=== PATIENT | female | born 1995 | race Caucasian/White ===

== ENCOUNTER 2017-04-12 16:28 | Emergency (ER) | payer OTHER ==
[2017-04-12 17:54] LABS: BILIRUBIN,URINE NEGATIVE (NEGATIVE); GLUCOSE, URINE (UA) NEGATIVE (NEGATIVE); KETONES,URINE (UA) >=80 mg/dL (NEGATIVE); LEUKOCYTE ESTERASE, URINE MODERATE (NEGATIVE); NITRITE,URINE NEGATIVE (NEGATIVE); OCCULT BLOOD,URINE NEGATIVE (NEGATIVE); PROTEIN,URINE NEGATIVE (NEGATIVE); UROBILINOGEN,URINE 0.2 (NORMAL) E.U./dL (NORMAL)
[2017-04-12 18:02] LABS: CLARITY,URINE CLEAR (CLEAR); HCG UR QUAL POSITIVE
[2017-04-12 18:03] LABS: BACTERIA,URINE Moderate /HPF (None Seen); RBC,URINE 0-5 /HPF (0-5); SQUAMOUS EPITHELIAL CELL,UR MOD Squamous (<= Few)
--- NOTE | 2017-04-12 18:26 | ED Physician Documentation ---
PD HPI FEMALE - Stated complaint Stated Complaint: CRAMPING/15WEEKS PREG - Chief complaint Chief Complaint: Abd Pain - History obtained from History obtained from: Patient - History of Present Illness Timing - onset: Today Timing - duration: Hours (noted some jabbing pain lower left abd to left low back. Has noted some vaginal discharge with odor.) Timing - details: Abrupt onset, Intermittant Associated symptoms: Back pain, Pelvic pain, Vaginal discharge. No: Fever, Vaginal bleeding, Genital sore/lesion, Dysuria, Urinary frequency Contributing factors: (15 weeks) Similar symptoms before: Has not had sx before Review of Systems Constitutional: denies: Fever, Chills Nose: denies: Rhinorrhea / runny nose, Congestion Throat: denies: Sore throat Respiratory: denies: Cough GI: denies: Nausea, Vomiting, Diarrhea : reports: Discharge, Now EGA (15 weeks). denies: Dysuria, Frequency Skin: denies: Rash, Lesions Neurologic: denies: Generalized weakness, Near syncope PD PAST MEDICAL HISTORY - Past Medical History Cardiovascular: None Respiratory: None Neuro: None Endocrine/Autoimmune: None - Present Medications Home Medications: Ambulatory Orders Medication Instructions Recorded Confirmed Fluconazole [Diflucan] 150 mg PO ONCE #1 tablet 04/12/17 Metronidazole [Flagyl] 500 mg PO BID #14 tablet 04/12/17 Naproxen 375 mg PO BID #10 tablet 04/12/17 Pnv No.122/Iron/Folic Acid 1 each PO DAILY 04/12/17 04/12/17 [ Multi Tablet] - Allergies Allergies/Adverse Reactions: Allergies Allergy/AdvReac Type Severity Reaction Status Date / Time No Known Drug Allergies Allergy Verified 04/12/17 16:36 PD ED PE NORMAL - Vitals Vital signs reviewed: Yes - General General: Alert and oriented X 3, No acute distress, Well developed/nourished - HEENT HEENT: Pharynx benign - Neck Neck: Supple, no meningeal sign, No adenopathy - Cardiac Cardiac: RRR, No murmur - Respiratory Respiratory: Clear bilaterally - Abdomen Abdomen: Normal bowel sounds, Soft, Non tender, Non distended - Female Female : Scaffold Worker present, Other (external normal. Inner labia with thicker white discharge c/w yeast. Vault with copious white discharge that is milky and vaginal wall redness. Cervix appears closed and not irritated. No bleeding. ) - Rectal Rectal: Deferred - Back Back: No CVA TTP, No spinal TTP - Derm Derm: Normal color, Warm and dry, No rash Results - Vitals Vitals: Oxygen O2 Source Room air - Labs Labs: Microbiology 04/12/17 19:20 Wet Prep - Final Genital - Vaginal Laboratory Tests 04/12/17 17:45 Urine Color YELLOW Urine Clarity CLEAR Urine pH 6.0 Ur Specific [place] 1.020 Urine Protein NEGATIVE Urine Glucose (UA) NEGATIVE Urine Ketones >=80 H Urine Occult Blood NEGATIVE Urine Nitrite NEGATIVE Urine Bilirubin NEGATIVE Urine Urobilinogen 0.2 (NORMAL) Ur Leukocyte Esterase MODERATE H Urine RBC 0-5 Urine WBC 0-3 Ur Squamous Epith Cells MOD Squamous H Urine Bacteria Moderate H Ur Microscopic Review INDICATED Urine Culture Comments NOT INDICATED Urine HCG, Qual POSITIVE PD MEDICAL DECISION MAKING - ED course Complexity details: reviewed results (exam c/w BV and clue cells seen on wet prep. ), considered differential, d/w patient Departure - Departure Disposition: 01 Home, Self Care Clinical Impression: Lower abdominal pain, Bacterial vaginitis Condition: Stable Record reviewed to determine appropriate education?: Yes Instructions: ED Vaginosis Bacterial Prescriptions: Fluconazole [Diflucan] 150 mg PO ONCE #1 tablet Metronidazole [Flagyl] 500 mg PO BID #14 tablet Naproxen 375 mg PO BID #10 tablet Comments: There is bacterial vaginitis by lab test. Use metronidazole twice daily for a week for that. Use naproxen twice daily for a week for inflammation. It does look like yeast infection as well and so repeat the fluconazole tablet in 3 days. I presume these are the causes of the belly and back pain that you had but recheck if other symptoms occur or that pain is consistent. Otherwise he can use Tylenol if needed every 4 hours for pain. Follow-up with your [facility] [employer] [facility]PERATOR at their soonest appointment. Return here if not significantly better over the next few days. There are cultures of the vaginal vault and the urine that will result in about 3 days and will call you if we need to amend the treatment. Discharge Date/Time: 04/12/17 20:12
[2017-04-12] MEDS ORDERED: IBUPROFEN 600 MG TABLET PO STA (18:45)
[2017-04-12] MEDS ORDERED: FLUCONAZOLE 100 MG TABLET PO STA (19:32)
[2017-04-12] MEDS ORDERED: DEXAMETHASONE 10 MG/ML VIAL PO STA (19:32)
[2017-04-12 19:40] VITALS: BP 111/73
[2017-04-12] MEDS ORDERED: CHERRY SYRUP 10 ML UDC PO ONE (19:43)
[2017-04-12] MEDS ORDERED: metroNIDAZOLE 250 MG TABLET PO STA (19:57)
== END 2017-04-12 20:12 | disposition home or self-care (01) ==
LOC: ED 16:28
DX: O26.892 Other specified pregnancy related conditions, second trimester (principal); R10.32 Left lower quadrant pain; O23.592 Infection of other part of genital tract in pregnancy, second trimester; B96.89 Other specified bacterial agents as the cause of diseases classified elsewhere; Z3A.15 15 weeks gestation of pregnancy
CPT/HCPCS: 81001; 81025; 87210; 87491; 87591; 99283; A9270; 81003; 87086

== ENCOUNTER 2018-11-03 19:53 | Emergency (ER) | payer OTHER ==
[2018-11-03 20:06] VITALS: BP 133/87
--- NOTE | 2018-11-03 20:42 | ED Physician Documentation ---
History of Present Illness - Stated complaint Stated Complaint: R ANKLE INJ - Chief complaint Chief Complaint: Trauma Ext - Additonal information Additional information: This is a 23-year-old female who presents with right ankle pain after inversion injury. At 10 AM this morning she stepped off a curb and rolled her ankle, she had immediate pain. She has been able to walk on it but not well. The pain is been increasing throughout the day. It is currently moderate at rest, severe with palpation or with any inversion. She denies any weakness, numbness, or tingling. Review of Systems Constitutional: denies: Fever Cardiac: denies: Chest pain / pressure Skin: reports: Other (Bruising) Musculoskeletal: reports: Extremity pain, Joint swelling PD PAST MEDICAL HISTORY - Past Medical History Past Medical History: No Cardiovascular: None Respiratory: None Endocrine/Autoimmune: None - Past Surgical History Past Surgical History: Yes - Present Medications Home Medications: Ambulatory Orders Medication Instructions Recorded Confirmed RX: Acetaminophen 650 mg PO Q6HR #30 tablet 11/03/18 RX: Ibuprofen 600 mg PO Q6H PRN #30 tablet 11/03/18 - Allergies Allergies/Adverse Reactions: Allergies Allergy/AdvReac Type Severity Reaction Status Date / Time No Known Drug Allergies Allergy Verified 04/12/17 16:36 - Social History Does the pt smoke?: No Smoking Status: Never smoker Does the pt drink ETOH?: No Does the pt have substance abuse?: No - Immunizations Immunizations are current?: Yes PD ED PE NORMAL - Vitals Vital signs reviewed: Yes - General General: Alert and oriented X 3, No acute distress - HEENT HEENT: Atraumatic - Cardiac Cardiac: Strong equal pulses - Abdomen Abdomen: Non distended - Derm Derm: Warm and dry - Extremities Extremities: Other (Ecchymosis and edema inferior to the right lateral malleolus. There is tenderness palpation over the anterior talofibular ligament. There is also some tenderness of the malleolus itself. There is no medial tenderness or bruising. 2+ DP pulse symmetric bilaterally. Sensation to light touch intact over the entire foot. Patient able to wiggle her toes, dorsiflex and plantarflex the ankle with some pain. She has no tenderness above the malleoli or in the upper tibia/fibula.) - Neuro Neuro: Alert and oriented X 3 - Psych Psych: Normal mood, Normal affect Results - Vitals Vitals: Vital Signs - 24 hr 11/03/18 20:01 Temperature 36.5 C Heart Rate 66 Respiratory 14 Rate Blood Pressure 133/87 H O2 Saturation 99 Oxygen O2 Source Room air PD MEDICAL DECISION MAKING - ED course Complexity details: considered differential (Sprain, strain, contusion, ligamentous injury, fracture, dislocation) ED course: Patient presents with ankle pain after inversion injury. She has been able to bear weight, and she is neurovascularly intact. X-ray shows no acute osseous abnormality. I discussed with her this result, and then I think she most likely has an ankle Sprain. I recommended that she follow-up with her primary care provider in 1 week if she is having any continued or not improving symptoms. I discussed supportive care with rest, ice, compression, and elevation. I reviewed return precautions with any new or worsening symptoms. Patient agreed and was discharged home with an harinder wrap in place and a note excusing her from extensive walking at work for the next week. Departure - Departure Disposition: 01 Home, Self Care Clinical Impression: Ankle injury Qualifiers: Encounter type: initial encounter Laterality: right Qualified Code(s): S99.911A - Unspecified injury of right ankle, initial encounter Condition: Good Instructions: ED Sprain Ankle W X Ray Follow-Up: SULMA OLIVA PA-C [Primary Care Provider] - As Needed (With any continued symptoms) Prescriptions: RX: Acetaminophen 650 mg PO Q6HR #30 tablet RX: Ibuprofen 600 mg PO Q6H PRN #30 tablet PRN Reason: Pain Comments: You were seen today for pain in your ankle, you appear to have an ankle sprain. Please use Harinder wrap, elevate the foot, rest, and take ibuprofen and Tylenol as needed for pain. Avoid activities that are making the pain worse. If you have continued pain is not improving in 1 week, please follow-up with your primary care provider to get a repeat x-ray or further evaluation. Discharge Date/Time: 11/03/18 21:30
--- NOTE | 2018-11-03 21:09 | XRAY Report ---
Reason: R ankle inversion injury Procedure Date: 11/03/2018 Accession Number: [id number] / [id number] Procedure: XR - Ankle 3 View RT CPT Code: FULL RESULT: EXAM: RIGHT ANKLE RADIOGRAPHY EXAM DATE: 11/03/2018 08:55 PM. CLINICAL HISTORY: R ankle inversion injury. COMPARISON: None. TECHNIQUE: 3 views. FINDINGS: Bones: No acute fractures or suspicious bone lesions. Joints: No subluxations. Ankle mortise is preserved. Soft Tissues: Soft tissue swelling. IMPRESSION: No acute radiographic abnormalities. [facility]
== END 2018-11-03 21:30 | disposition home or self-care (01) ==
LOC: ED 19:53
DX: S99.911A Unspecified injury of right ankle, initial encounter (principal); X50.1XXA Overexertion from prolonged static or awkward postures, initial encounter; Y93.01 Activity, walking, marching and hiking; Y92.480 Sidewalk as the place of occurrence of the external cause
CPT/HCPCS: 99283; 99284